=== PATIENT | male | born 1970 | race Caucasian/White ===

== ENCOUNTER → 2016-11-18 | Outpatient (CLI) | payer OTHER ==
[~2016-11-18] MED LIST: LOPRESSOR25 MG PO; ZOLOFT50 MG PO
== END | disposition home or self-care (01) ==
LOC: CARD 08:16
DX: R00.2 Palpitations (principal)

== ENCOUNTER 2017-01-03 18:52 | Inpatient (IN) | payer OTHER ==
[~2017-01-03] VITALS: Ht 177.8 cm; Wt 106.8 kg
--- NOTE | ~2017-01-03 | CON ---
[place], [place] REPORT OF CONSULTATION NAME: DANE VIVAR JR UNIT #: [id number] ROOM: 519 DOCTOR: CHARLES SALAS MD BIRTHDATE: [birth year] DOS: 01/04/2017 HISTORY OF PRESENT ILLNESS: The patient is a 46-year-old apparently with anxiety, with antianxiety pills admitted with substernal chest discomfort. The patient had a Holter monitor done in November, no evidence of arrhythmia. Cardiac enzymes are all negative. Pain lasted about 4 seconds intermittently. No diaphoresis. No shortness of breath, has had not had any cardiac workup except for the Holter monitor done above in November. PAST MEDICAL HISTORY: Anxiety and depression. SURGICAL HISTORY: , history of cholecystectomy, status post right foot surgery. SOCIAL HISTORY: Denies any alcohol or drug abuse. FAMILY HISTORY: Positive for coronary artery disease. ALLERGIES: None. HOME MEDICATIONS: Metoprolol and Zoloft. REVIEW OF SYSTEMS: CONSTITUTIONAL: No fever, no chills. HEENT: No visual disturbances or hearing problems. CARDIOVASCULAR: As described in HPI. GASTROINTESTINAL: No nausea, no vomiting. GENITOURINARY: No dysuria. NEUROLOGIC: No syncope. All other review of systems are negative. PHYSICAL EXAMINATION: VITAL SIGNS: Blood pressure is 128/70, patient is in sinus rhythm. HEENT: Unremarkable. NECK: Supple, no JVD, no thyromegaly, no lymphadenopathy. LUNGS: Clear to auscultation and percussion. HEART: Sounds are regular. No murmur, no rub. ABDOMEN: Soft, nontender. NEUROLOGICAL: Stable. LABORATORY DATA: Electrolytes are normal. Hemoglobin and hematocrit within normal limits. EKG, sinus rhythm with nonspecific ST-T changes. IMPRESSION: The patient with atypical chest discomfort, hypertension, anxiety. RECOMMENDATIONS: Continue the beta blockers. Cardiac enzymes are all negative. Agree with proceeding with a stress test and we will follow up. [place], [place] REPORT OF CONSULTATION NAME: DANE VIVAR JR UNIT #: [id number] ROOM: 519 DOCTOR: CHARLES SALAS MD BIRTHDATE: [birth year] CHARLES SALAS MD CM:CONSTR:REPORT OF CONSULTATION 0728 01/04/17 2358 interface
--- NOTE | ~2017-01-03 | ST ---
[place], [place] EXERCISE STRESS TEST REPORT NAME: DANE VIVAR JR UNIT #: [id number] ROOM: 519 DOCTOR: CHARLES SALAS MD BIRTHDATE: [birth year] DOS: 01/04/2017 The patient walked on the [place]ie protocol, 6 minutes 30 seconds. Heart rate is 145, more than 85% of predicted heart rate. Procedure terminated on completion of the protocol. Baseline cardiogram, sinus rhythm with exercise. No EKG changes. No chest pain. Blood pressure and heart rate response was normal. Nuclear images will be reported separately. CHARLES SALAS MD CM:STRESS:EXERCISE STRESS TEST REPORT [id number] THOMAS GRAFF DO CHARLES SALAS MD
[2017-01-03 18:58] VITALS: BP 144/78
[2017-01-03 19:13] LABS: BASO # 0.1 10*3/uL (0.0-0.1); BASO % 0.4 % (0.0-1.0); EOS # 0.2 10*3/uL (0.0-0.4); EOS % 1.4 % (1.0-4.0); HEMATOCRIT 46.4 % (42.0-52.0); HEMOGLOBIN 15.8 g/dl (14.0-18.0); IG # 0.1 10*3/uL (0.0-0.1); LYMPH # 2.6 10*3/uL (1.3-4.4); LYMPH % 21.7 % (27.0-41.0); MEAN CELL VOLUME 89.1 fl (80.0-94.0); MEAN CORPUSCULAR HGB 30.3 pg (27.0-31.0); MEAN CORPUSCULAR HGB CONC 34.1 g/dl (33.0-37.0); MEAN PLATELET VOLUME 8.9 fl (9.6-12.3); MONO # 0.8 10*3/uL (0.1-1.0); MONO % 6.9 % (3.0-9.0); NEUT # 8.2 10*3/uL (2.3-7.9); NEUT % 69.1 % (47.0-73.0); PLATELET COUNT AUTOMATED 219 10*3/uL (130-400); RED BLOOD COUNT 5.21 10*6/uL (4.50-5.90); WHITE BLOOD COUNT 11.8 10*3/uL (4.8-10.8)
[2017-01-03 19:24] LABS: INTERNATIONAL NORM RATIO 0.9 (2.0-3.5); PROTHROMBIN TIME 9.4 SECONDS (9.0-12.4)
[2017-01-03 19:31] LABS: ALBUMIN 4.1 gm/dl (3.1-4.5); ALKALINE PHOSPHATASE 45 U/L (45-117); BILIRUBIN, TOTAL 0.4 mg/dl (0.2-1.0); BUN 14 mg/dl (7-24); CARBON DIOXIDE 27 mmol/L (21-32); CHLORIDE 104 mmol/L (98-107); EST GLOM FILT AFRICAN AMERICAN > 60 ml/min; GLUCOSE 129 mg/dL (65-99); MAGNESIUM 2.5 mg/dL (1.5-2.1); POTASSIUM 3.7 mmol/L (3.5-5.1); SGOT/AST 21 IU/L (3-35); SODIUM 142 mmol/L (136-145); TOTAL PROTEIN 7.8 gm/dL (6.4-8.2)
[2017-01-03 19:34] LABS: SGPT/ALT 30 U/L (12-78)
[2017-01-03 19:38] LABS: TROPONIN I < 0.015 ng/ml (<0.045)
[2017-01-03 22:20] VITALS: BP 128/78
[2017-01-03 22:50] VITALS: BP 147/86
[2017-01-03] MEDS ORDERED: ZOLOFT100 MG PO (23:33)
[2017-01-04 05:11] VITALS: BP 130/84
[2017-01-04 06:11] LABS: ALBUMIN 3.5 gm/dl (3.1-4.5); BILIRUBIN, TOTAL 0.3 mg/dl (0.2-1.0); BUN 12 mg/dl (7-24); CARBON DIOXIDE 29 mmol/L (21-32); CHLORIDE 106 mmol/L (98-107); CHOLESTEROL 163 mg/dL (<200); EST GLOM FILT AFRICAN AMERICAN > 60 ml/min; GLUCOSE 101 mg/dL (65-99); HDL CHOLESTEROL 40 mg/dl (40-60); MAGNESIUM 2.5 mg/dL (1.5-2.1); PHOSPHOROUS 3.6 mg/dL (2.5-4.9); SGOT/AST 14 IU/L (3-35); SGPT/ALT 26 U/L (12-78); SODIUM 143 mmol/L (136-145); TOTAL PROTEIN 6.7 gm/dL (6.4-8.2)
[2017-01-04 06:16] LABS: BASO # 0.1 10*3/uL (0.0-0.1); BASO % 0.6 % (0.0-1.0); EOS # 0.2 10*3/uL (0.0-0.4); EOS % 2.4 % (1.0-4.0); HEMATOCRIT 44.7 % (42.0-52.0); HEMOGLOBIN 14.9 g/dl (14.0-18.0); IG # 0.1 10*3/uL (0.0-0.1); LYMPH # 2.6 10*3/uL (1.3-4.4); LYMPH % 25.7 % (27.0-41.0); MEAN CELL VOLUME 90.1 fl (80.0-94.0); MEAN CORPUSCULAR HGB CONC 33.3 g/dl (33.0-37.0); MEAN PLATELET VOLUME 8.7 fl (9.6-12.3); MONO # 0.9 10*3/uL (0.1-1.0); MONO % 8.9 % (3.0-9.0); NEUT # 6.2 10*3/uL (2.3-7.9); NEUT % 61.7 % (47.0-73.0); PLATELET COUNT AUTOMATED 198 10*3/uL (130-400); RED BLOOD COUNT 4.96 10*6/uL (4.50-5.90); RED CELL DISTRI WIDTH 13.1 % (0-14.5)
[2017-01-04 06:20] LABS: ALKALINE PHOSPHATASE 39 U/L (45-117); FREE T4 0.71 ng/dl (0.76-1.46); LDL CHOLESTEROL 97 mg/dL (9-159); TRIGLYCERIDES 131 mg/dl (<150); VLDL CHOLESTEROL 26 mg/dL (6-40)
[2017-01-04 06:45] LABS: INTERNATIONAL NORM RATIO 0.9 (2.0-3.5); PROTHROMBIN TIME 9.4 SECONDS (9.0-12.4)
[2017-01-04 08:00] VITALS: BP 119/74
[2017-01-04 12:00] VITALS: BP 114/61
[2017-01-04] MEDS ORDERED: LISINOPRIL10 M1 PO (13:10)
== END 2017-01-04 13:52 | disposition home or self-care (01) | DRG 206 ==
LOC: ED 18:52 → 5E 22:24
PROVIDERS: Physician Assistant; Student in an Organized Health Care Education/Training Program
PROC: 4A02XM4 Measurement of Cardiac Total Activity, External Approach (ICD-10-PCS; principal; 2017-01-04)
DX: M94.0 Chondrocostal junction syndrome [Tietze] (principal); E83.41 Hypermagnesemia; I10 Essential (primary) hypertension; F41.9 Anxiety disorder, unspecified; F32.9 Major depressive disorder, single episode, unspecified; D72.829 Elevated white blood cell count, unspecified; R73.9 Hyperglycemia, unspecified; E66.9 Obesity, unspecified; Z68.33 Body mass index [BMI] 33.0-33.9, adult; Z90.49 Acquired absence of other specified parts of digestive tract; Z83.3 Family history of diabetes mellitus; Z82.69 Family history of other diseases of the musculoskeletal system and connective tissue; Z84.2 Family history of other diseases of the genitourinary system

== ENCOUNTER → 2017-01-11 | Outpatient (CLI) | payer OTHER ==
[~2017-01-11] MED LIST changes: +LISINOPRIL10 M1 PO; +ZOLOFT100 MG PO
== END | disposition home or self-care (01) ==
LOC: RESCLI 01:13
DX: I11.0 Hypertensive heart disease with heart failure (principal); I50.32 Chronic diastolic (congestive) heart failure; E03.9 Hypothyroidism, unspecified; I25.810 Atherosclerosis of coronary artery bypass graft(s) without angina pectoris; E78.2 Mixed hyperlipidemia; E55.9 Vitamin D deficiency, unspecified; I48.0 Paroxysmal atrial fibrillation

== ENCOUNTER 2017-01-21 00:14 | Emergency (ER) | payer OTHER ==
[~2017-01-21] VITALS: Ht 175.2 cm; Wt 104.3 kg
[2017-01-21] MEDS ORDERED: CYCLOBENZAPRINE5 M3 PO (01:07)
[2017-01-21] MEDS ORDERED: PREDNISONE10 MG PO (01:07)
== END 2017-01-21 01:23 | disposition home or self-care (01) ==
LOC: ED 00:14
DX: M79.604 Pain in right leg (principal); M54.31 Sciatica, right side; Z79.899 Other long term (current) drug therapy

== ENCOUNTER → 2017-01-25 | Outpatient (CLI) | payer OTHER ==
[~2017-01-25] MED LIST changes: +CYCLOBENZAPRINE5 M3 PO; +PREDNISONE10 MG PO
== END | disposition home or self-care (01) ==
LOC: RESCLI 03:21
DX: I10 Essential (primary) hypertension (principal); M25.561 Pain in right knee; F33.9 Major depressive disorder, recurrent, unspecified; F41.9 Anxiety disorder, unspecified; M54.31 Sciatica, right side; N52.2 Drug-induced erectile dysfunction; R00.0 Tachycardia, unspecified; M54.16 Radiculopathy, lumbar region

== ENCOUNTER → 2017-02-01 | Outpatient (CLI) | payer OTHER | END | disposition home or self-care (01) | LOC: RESCLI 02:03 | DX: M54.16 Radiculopathy, lumbar region (principal); G89.29 Other chronic pain; M25.561 Pain in right knee; R20.2 Paresthesia of skin; R26.2 Difficulty in walking, not elsewhere classified ==

== ENCOUNTER → 2017-03-01 | Outpatient (CLI) | payer OTHER | END | disposition home or self-care (01) | LOC: RESCLI 02:59 | DX: F33.1 Major depressive disorder, recurrent, moderate (principal); I10 Essential (primary) hypertension; N52.2 Drug-induced erectile dysfunction; M54.31 Sciatica, right side; F41.9 Anxiety disorder, unspecified; M51.27 Other intervertebral disc displacement, lumbosacral region; Z90.49 Acquired absence of other specified parts of digestive tract ==

== ENCOUNTER → 2017-03-29 | Outpatient (CLI) | payer OTHER | END | disposition home or self-care (01) | LOC: RESCLI 03:07 | DX: F41.9 Anxiety disorder, unspecified (principal); F33.1 Major depressive disorder, recurrent, moderate; I10 Essential (primary) hypertension; N52.2 Drug-induced erectile dysfunction; M54.31 Sciatica, right side; J06.9 Acute upper respiratory infection, unspecified; B97.89 Other viral agents as the cause of diseases classified elsewhere; E66.9 Obesity, unspecified ==

== ENCOUNTER → 2017-08-08 | Outpatient (CLI) | payer OTHER | END | disposition home or self-care (01) | LOC: RESCLI 01:18 | DX: I10 Essential (primary) hypertension (principal); F33.1 Major depressive disorder, recurrent, moderate; F41.9 Anxiety disorder, unspecified; E66.9 Obesity, unspecified; B37.2 Candidiasis of skin and nail; N52.9 Male erectile dysfunction, unspecified ==

== ENCOUNTER → 2017-11-01 | Outpatient (CLI) | payer OTHER | END | disposition home or self-care (01) | LOC: RESCLI 03:30 | DX: I10 Essential (primary) hypertension (principal); F33.1 Major depressive disorder, recurrent, moderate; F41.9 Anxiety disorder, unspecified; N52.9 Male erectile dysfunction, unspecified; M77.11 Lateral epicondylitis, right elbow; B37.2 Candidiasis of skin and nail ==

== ENCOUNTER → 2017-12-13 | Outpatient (CLI) | payer OTHER | END | disposition home or self-care (01) | LOC: RESCLI 01:53 | DX: Z00.01 Encounter for general adult medical examination with abnormal findings (principal); I10 Essential (primary) hypertension; M77.11 Lateral epicondylitis, right elbow; N52.9 Male erectile dysfunction, unspecified; F33.1 Major depressive disorder, recurrent, moderate; F41.9 Anxiety disorder, unspecified; R60.0 Localized edema; E66.01 Morbid (severe) obesity due to excess calories; Z90.49 Acquired absence of other specified parts of digestive tract ==

== ENCOUNTER → 2017-12-27 | Outpatient (CLI) | payer OTHER | END | disposition home or self-care (01) | LOC: RESCLI 01:59 | DX: I10 Essential (primary) hypertension (principal); J01.10 Acute frontal sinusitis, unspecified; F41.9 Anxiety disorder, unspecified; G89.4 Chronic pain syndrome; F33.1 Major depressive disorder, recurrent, moderate; E66.01 Morbid (severe) obesity due to excess calories; Z90.49 Acquired absence of other specified parts of digestive tract ==

== ENCOUNTER → 2018-03-03 | Outpatient (CLI) | payer OTHER ==
[2018-03-03 08:36] LABS: BASO # 0.1 10*3/uL (0.0-0.1); BASO % 0.5 % (0.0-1.0); EOS # 0.2 10*3/uL (0.0-0.4); EOS % 1.9 % (1.0-4.0); HEMATOCRIT 45.5 % (42.0-52.0); HEMOGLOBIN 15.1 g/dl (14.0-18.0); LYMPH # 2.4 10*3/uL (1.3-4.4); LYMPH % 25.4 % (27.0-41.0); MEAN CELL VOLUME 91.5 fl (80.0-94.0); MEAN CORPUSCULAR HGB 30.4 pg (27.0-31.0); MEAN CORPUSCULAR HGB CONC 33.2 g/dl (33.0-37.0); MEAN PLATELET VOLUME 8.6 fl (9.6-12.3); MONO % 10.6 % (3.0-9.0); NEUT # 5.6 10*3/uL (2.3-7.9); NEUT % 60.7 % (47.0-73.0); PLATELET COUNT AUTOMATED 183 10*3/uL (130-400); RED BLOOD COUNT 4.97 10*6/uL (4.50-5.90); RED CELL DISTRI WIDTH 13.2 % (0-14.5); WHITE BLOOD COUNT 9.2 10*3/uL (4.8-10.8)
[2018-03-03 09:02] LABS: ALBUMIN 3.9 gm/dl (3.1-4.5); ALKALINE PHOSPHATASE 53 U/L (45-117); BUN 17 mg/dl (7-24); CHLORIDE 101 mmol/L (98-107); CHOLESTEROL 173 mg/dL (<200); CREATININE 1.26 mg/dL (0.70-1.30); HDL CHOLESTEROL 27 mg/dl (40-60); LDL CHOLESTEROL 87 mg/dL (9-159); POTASSIUM 3.9 mmol/L (3.5-5.1); SGOT/AST 23 IU/L (3-35); SGPT/ALT 50 U/L (12-78); SODIUM 139 mmol/L (136-145); TOTAL PROTEIN 7.7 gm/dL (6.4-8.2); TRIGLYCERIDES 294 mg/dl (<150); VLDL CHOLESTEROL 59 mg/dL (6-40)
== END | disposition home or self-care (01) ==
LOC: LAB 08:07
PROVIDERS: Internal Medicine
DX: Z00.01 Encounter for general adult medical examination with abnormal findings (principal); R79.89 Other specified abnormal findings of blood chemistry

== ENCOUNTER → 2018-03-15 | Outpatient (CLI) | payer OTHER | END | disposition home or self-care (01) | LOC: RESCLI 03:34 | DX: I10 Essential (primary) hypertension (principal); B35.1 Tinea unguium; R73.03 Prediabetes; F41.9 Anxiety disorder, unspecified; F33.1 Major depressive disorder, recurrent, moderate; M54.31 Sciatica, right side; N52.9 Male erectile dysfunction, unspecified; E66.01 Morbid (severe) obesity due to excess calories; E55.9 Vitamin D deficiency, unspecified; F17.210 Nicotine dependence, cigarettes, uncomplicated ==

== ENCOUNTER → 2019-10-04 | Day surgery (SDC) | payer OTHER ==
[~2019-10-04] VITALS: Ht 177.8 cm; Wt 117.0 kg
[~2019-10-04] MED LIST changes: +ATARAX,VISTARIL10 MG PO; +WELLBUTRIN XL150 MG PO
[2019-10-04 08:40] VITALS: BP 112/60
[2019-10-04 09:13] VITALS: BP 102/51
[2019-10-04 09:28] VITALS: BP 100/56
[2019-10-04 09:51] VITALS: BP 102/56
== END | disposition home or self-care (01) ==
LOC: SDC 10-02 14:00
DX: Z12.11 Encounter for screening for malignant neoplasm of colon (principal); I10 Essential (primary) hypertension; F32.9 Major depressive disorder, single episode, unspecified; F41.9 Anxiety disorder, unspecified; K21.9 Gastro-esophageal reflux disease without esophagitis; F17.210 Nicotine dependence, cigarettes, uncomplicated; E66.9 Obesity, unspecified; Z68.36 Body mass index [BMI] 36.0-36.9, adult; Z98.890 Other specified postprocedural states; Z83.3 Family history of diabetes mellitus

== ENCOUNTER 2020-12-21 17:14 | Inpatient (IN) | payer OTHER ==
[~2020-12-21] VITALS: Ht 177.8 cm; Wt 111.6 kg
[2020-12-21 17:22] VITALS: BP 139/77
[2020-12-21 18:13] LABS: BASO % 0.2 % (0.0-1.0); EOS % 0.1 % (1.0-4.0); HEMATOCRIT 44.9 % (42.0-52.0); LYMPH # 1.6 10*3/uL (1.3-4.4); LYMPH % 8.8 % (27.0-41.0); MEAN CELL VOLUME 94.1 fl (80.0-94.0); MEAN PLATELET VOLUME 8.9 fl (9.6-12.3); MONO % 5.4 % (3.0-9.0); NEUT # 15.8 10*3/uL (2.3-7.9); PLATELET COUNT AUTOMATED 195 10*3/uL (130-400); RED BLOOD COUNT 4.77 10*6/uL (4.50-5.90); RED CELL DISTRI WIDTH 12.7 % (0-14.5); WHITE BLOOD COUNT 18.6 10*3/uL (4.8-10.8)
[2020-12-21 18:24] LABS: ACT PARTIAL THROMBO TIME 22.9 SECONDS (20.0-32.1)
[2020-12-21 18:32] LABS: ALBUMIN 4.1 gm/dl (3.1-4.5); CREATININE 1.57 mg/dL (0.70-1.30); TOTAL PROTEIN 7.7 gm/dL (6.4-8.2)
[2020-12-21 19:51] LABS: BILIRUBIN Negative (Negative); BLOOD Negative (Negative); CLARITY Clear (Clear); COLOR Yellow (Yellow); GLUCOSE Negative (Negative); KETONE Trace (Negative); LEUKO ESTERASE Negative (Negative); NITRITE Negative (Negative); SPECIFIC GRAVITY >= 1.030 (1.001-1.030)
[2020-12-21 20:07] LABS: MUCOUS 1+; RBC 0-2 rbc/hpf (0-2); WBC 0-2 wbc/hpf (0-5)
[2020-12-21 20:31] VITALS: BP 130/78
[2020-12-21 23:10] VITALS: BP 113/54
[2020-12-22 04:16] VITALS: BP 97/52
[2020-12-22 05:24] LABS: ALBUMIN 3.1 gm/dl (3.1-4.5); BUN 15 mg/dl (7-24); CHLORIDE 108 mmol/L (98-107); CREATININE 1.14 mg/dL (0.70-1.30); POTASSIUM 3.8 mmol/L (3.5-5.1); SGOT/AST 12 IU/L (3-35); SGPT/ALT 33 U/L (12-78); SODIUM 138 mmol/L (136-145); TOTAL PROTEIN 6.1 gm/dL (6.4-8.2)
[2020-12-22 05:25] LABS: ALKALINE PHOSPHATASE 40 U/L (45-117)
[2020-12-22 06:23] LABS: BASO % 0.2 % (0.0-1.0); EOS % 0.2 % (1.0-4.0); HEMATOCRIT 38.8 % (42.0-52.0); LYMPH # 1.9 10*3/uL (1.3-4.4); LYMPH % 12.4 % (27.0-41.0); MEAN CELL VOLUME 93.9 fl (80.0-94.0); MEAN PLATELET VOLUME 9.3 fl (9.6-12.3); MONO # 1.1 10*3/uL (0.1-1.0); MONO % 7.5 % (3.0-9.0); NEUT # 11.8 10*3/uL (2.3-7.9); NEUT % 79.2 % (47.0-73.0); PLATELET COUNT AUTOMATED 168 10*3/uL (130-400); RED BLOOD COUNT 4.13 10*6/uL (4.50-5.90); RED CELL DISTRI WIDTH 12.9 % (0-14.5); WHITE BLOOD COUNT 14.9 10*3/uL (4.8-10.8)
[2020-12-22 08:56] VITALS: BP 99/58
[2020-12-22 11:01] VITALS: BP 122/64
[2020-12-22 16:00] VITALS: BP 129/72
[2020-12-22 20:13] VITALS: BP 121/67
[2020-12-23 00:09] VITALS: BP 120/62
[2020-12-23 04:00] VITALS: BP 120/62
[2020-12-23 06:42] LABS: BASO % 0.3 % (0.0-1.0); BUN 10 mg/dl (7-24); CHLORIDE 101 mmol/L (98-107); CREATININE 1.06 mg/dL (0.70-1.30); EOS # 0.1 10*3/uL (0.0-0.4); EOS % 0.5 % (1.0-4.0); HEMATOCRIT 40.6 % (42.0-52.0); LYMPH # 1.6 10*3/uL (1.3-4.4); LYMPH % 10.3 % (27.0-41.0); MEAN CELL VOLUME 92.7 fl (80.0-94.0); MEAN CORPUSCULAR HGB 31.1 pg (27.0-31.0); MEAN CORPUSCULAR HGB CONC 33.5 g/dl (33.0-37.0); MONO # 1.4 10*3/uL (0.1-1.0); NEUT # 12.2 10*3/uL (2.3-7.9); NEUT % 79.1 % (47.0-73.0); PLATELET COUNT AUTOMATED 154 10*3/uL (130-400); POTASSIUM 3.8 mmol/L (3.5-5.1); RED BLOOD COUNT 4.38 10*6/uL (4.50-5.90); RED CELL DISTRI WIDTH 12.5 % (0-14.5); SODIUM 137 mmol/L (136-145); WHITE BLOOD COUNT 15.4 10*3/uL (4.8-10.8)
[2020-12-23 08:00] VITALS: BP 166/74
[2020-12-23 12:00] VITALS: BP 108/60
[2020-12-23 16:13] VITALS: BP 105/52
[2020-12-23 20:00] VITALS: BP 123/65
[2020-12-24] VITALS: BP 122/71
[2020-12-24 04:00] VITALS: BP 122/71
[2020-12-24 06:00] VITALS: BP 122/71
[2020-12-24 06:33] LABS: BASO # 0.1 10*3/uL (0.0-0.1); BASO % 0.4 % (0.0-1.0); EOS # 0.2 10*3/uL (0.0-0.4); EOS % 1.3 % (1.0-4.0); HEMATOCRIT 41.4 % (42.0-52.0); LYMPH # 1.7 10*3/uL (1.3-4.4); LYMPH % 13.1 % (27.0-41.0); MEAN CELL VOLUME 91.2 fl (80.0-94.0); MEAN CORPUSCULAR HGB 30.8 pg (27.0-31.0); MEAN CORPUSCULAR HGB CONC 33.8 g/dl (33.0-37.0); MONO # 1.4 10*3/uL (0.1-1.0); MONO % 11.4 % (3.0-9.0); NEUT # 9.3 10*3/uL (2.3-7.9); NEUT % 73.3 % (47.0-73.0); PLATELET COUNT AUTOMATED 185 10*3/uL (130-400); RED BLOOD COUNT 4.54 10*6/uL (4.50-5.90); RED CELL DISTRI WIDTH 12.6 % (0-14.5); WHITE BLOOD COUNT 12.6 10*3/uL (4.8-10.8)
[2020-12-24 08:00] VITALS: BP 123/68
[2020-12-24] MEDS ORDERED: FLAGYL500 MG PO (09:16)
[2020-12-24] MEDS ORDERED: CIPRO500 MG PO (09:16)
== END 2020-12-24 11:05 | disposition home or self-care (01) | DRG 871 ==
LOC: ED 17:14 → EDHOLD 19:24 → 5E 19:24
PROVIDERS: Emergency Medicine; Internal Medicine; Student in an Organized Health Care Education/Training Program; ADMIT Internal Medicine; ATTEND Internal Medicine
DX: A41.9 Sepsis, unspecified organism (principal); N17.0 Acute kidney failure with tubular necrosis; K57.32 Diverticulitis of large intestine without perforation or abscess without bleeding; R65.20 Severe sepsis without septic shock; R73.9 Hyperglycemia, unspecified; E83.41 Hypermagnesemia; D72.829 Elevated white blood cell count, unspecified; F41.9 Anxiety disorder, unspecified; F17.210 Nicotine dependence, cigarettes, uncomplicated; F32.9 Major depressive disorder, single episode, unspecified; E66.9 Obesity, unspecified; I10 Essential (primary) hypertension; E83.39 Other disorders of phosphorus metabolism; M54.30 Sciatica, unspecified side; Z71.6 Tobacco abuse counseling; Z90.49 Acquired absence of other specified parts of digestive tract; Z83.3 Family history of diabetes mellitus; Z68.35 Body mass index [BMI] 35.0-35.9, adult

== ENCOUNTER → 2021-03-25 | Outpatient (CLI) | payer OTHER ==
[~2021-03-25] MED LIST changes: +CIPRO500 MG PO; +FLAGYL500 MG PO; +LISINOPRIL5 MG PO; +VIAGRA25 MG PO
== END | disposition home or self-care (01) ==
LOC: ORTHO 02:04
PROVIDERS: ATTEND Orthopaedic Surgery
DX: M79.642 Pain in left hand (principal)

== ENCOUNTER → 2021-04-03 | Outpatient (CLI) | payer OTHER ==
[2021-04-03 13:37] LABS: BUN 14 mg/dl (7-24); CHLORIDE 108 mmol/L (98-107); CREATININE 1.09 mg/dL (0.70-1.30); SODIUM 141 mmol/L (136-145)
== END | disposition home or self-care (01) ==
LOC: LAB 11:59
PROVIDERS: ATTEND Orthopaedic Surgery
DX: Z01.818 Encounter for other preprocedural examination (principal); Z20.822 Contact with and (suspected) exposure to COVID-19

== ENCOUNTER → 2021-04-07 | Day surgery (SDC) | payer OTHER ==
[2021-04-03 12:45] VITALS: BP 138/81
[~2021-04-07] VITALS: Ht 177.8 cm; Wt 104.3 kg
[2021-04-07 08:20] VITALS: BP 119/68
[2021-04-07 10:48] VITALS: BP 100/71
[2021-04-07 11:00] VITALS: BP 96/59
[2021-04-07 11:18] VITALS: BP 112/78
== END | disposition home or self-care (01) ==
LOC: SDC 04-03 12:30
PROVIDERS: ATTEND Orthopaedic Surgery
DX: M65.312 Trigger thumb, left thumb (principal); M79.642 Pain in left hand; F32.9 Major depressive disorder, single episode, unspecified; I10 Essential (primary) hypertension; F17.210 Nicotine dependence, cigarettes, uncomplicated; F41.9 Anxiety disorder, unspecified; Z90.49 Acquired absence of other specified parts of digestive tract; Z98.890 Other specified postprocedural states; Z79.899 Other long term (current) drug therapy

== ENCOUNTER → 2021-12-21 | Day surgery (SDC) | payer OTHER ==
[~2021-12-21] VITALS: Ht 177.8 cm; Wt 108.4 kg
[2021-12-21] VITALS (7 sets, daily range): BP systolic 88–112; BP diastolic 42–71
[~2021-12-21] MED LIST changes: +COLACE100 MG PO; +MULTIVITAMINS1 EAC1 PO; +PERCOCET 5-3251 EACH PO; +ZOFRAN4 MG PO
== END | disposition home or self-care (01) ==
LOC: SDC 12-17 13:15
PROVIDERS: ATTEND Surgery
DX: K43.6 Other and unspecified ventral hernia with obstruction, without gangrene (principal); I10 Essential (primary) hypertension; F41.9 Anxiety disorder, unspecified; F17.290 Nicotine dependence, other tobacco product, uncomplicated; Z79.899 Other long term (current) drug therapy

== ENCOUNTER → 2022-03-10 | Outpatient (CLI) | payer OTHER | END | disposition home or self-care (01) | LOC: US 07:24 | PROVIDERS: ATTEND Internal Medicine | DX: L03.313 Cellulitis of chest wall (principal); M79.89 Other specified soft tissue disorders ==

== ENCOUNTER → 2022-11-08 | Outpatient (CLI) | payer OTHER | END | disposition home or self-care (01) | LOC: MRI 00:41 | PROVIDERS: ATTEND Physician Assistant | DX: D35.02 Benign neoplasm of left adrenal gland (principal); K76.0 Fatty (change of) liver, not elsewhere classified; N28.1 Cyst of kidney, acquired ==

== ENCOUNTER → 2022-12-31 | Outpatient (CLI) | payer OTHER ==
[2023-01-01 07:06] LABS: HBSAG Negative (Negative); HEP B CORE AB, IGM Negative (Negative); HEPATITIS C ANTIBODY Non Reactive (Non Reactive)
== END | disposition home or self-care (01) ==
LOC: LAB 14:59
PROVIDERS: ATTEND Nurse Practitioner Family
DX: K76.0 Fatty (change of) liver, not elsewhere classified (principal)

== ENCOUNTER → 2025-04-27 | Outpatient (CLI) | payer BC ==
[~2025-04-27] MED LIST changes: +ASPIRIN ADULT L81 M1 PO; +TERBINAFINE250 MG PO; +VIBRAMYCIN HYC100 MG PO
[2025-04-27 10:46] LABS: MEAN CELL VOLUME 92.6 fl (80.0-94.0); MEAN CORPUSCULAR HGB 30.8 pg (27.0-31.0); MEAN PLATELET VOLUME 8.6 fl (9.6-12.3); NUCLEATED RED BLOOD CELL 0.0 % (0.0-0.0); NUCLEATED RED BLOOD CELL 0.0 10*3/uL (0.0-0.0); PLATELET COUNT AUTOMATED 203.0 10*3/uL (130-400); RED CELL DISTRI WIDTH 12.9 % (0-14.5)
[2025-04-27 11:08] LABS: BUN 13 mg/dl (9-23); LDL CHOLESTEROL 92 mg/dL (9-159); SGPT/ALT 55 U/L (5-49)
== END | disposition home or self-care (01) ==
LOC: LAB 10:22
PROVIDERS: ATTEND Physician Assistant
DX: Z12.5 Encounter for screening for malignant neoplasm of prostate (principal); I10 Essential (primary) hypertension; R60.0 Localized edema; R45.4 Irritability and anger; M25.569 Pain in unspecified knee